=== PATIENT | male | born 1955 | race Two or more races ===

== ENCOUNTER 2019-09-12 05:53 | Day surgery (SDC) | payer OTHER | END 2019-09-12 12:10 | disposition home or self-care (01) | LOC: AMB-ENDOS 05:53 | DX: D12.8 Benign neoplasm of rectum (principal); K57.30 Diverticulosis of large intestine without perforation or abscess without bleeding ==

== ENCOUNTER 2019-11-09 07:41 | Outpatient (CLI) | payer OTHER | END 2019-11-09 08:03 | disposition home or self-care (01) | LOC: TOM 07:41 | DX: C18.6 Malignant neoplasm of descending colon (principal); L03.316 Cellulitis of umbilicus ==